=== PATIENT | female | born 1980 | race Caucasian/White ===

== ENCOUNTER 2017-01-05 21:17 | Emergency (ER) | payer SELFPAY ==
[~2017-01-05] VITALS: Ht 165.1 cm; Wt 57.0 kg
[2017-01-05 21:18] VITALS: BP 144/76; PULSE 74; RESP 16; TEMP 98.1; O2SAT 100
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
== END 2017-01-05 21:51 | disposition left against medical advice (07) ==
LOC: NEPK 21:17
DX: R10.9 Unspecified abdominal pain (principal)
CPT/HCPCS: 99281

== ENCOUNTER 2017-07-14 03:11 | Emergency (ER) | payer SELFPAY ==
[~2017-07-14] VITALS: Ht 162.6 cm; Wt 56.3 kg
[2017-07-14 03:18] VITALS: BP 133/71; PULSE 70; RESP 16; TEMP 97.9; O2SAT 99
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
[2017-07-14 05:37] VITALS: BP 107/67; PULSE 57; RESP 17; O2SAT 98
--- NOTE | 2017-07-14 05:38 | RADRPT ---
EXAM DATE/TIME: 07/14/2017 04:01 [facility] COMPARISON: No previous studies available for comparison. INDICATIONS : Left shoulder pain, patient fell. MEDICAL HISTORY : None. SURGICAL HISTORY : None. ENCOUNTER: Initial ACUITY: 1 day PAIN SCORE: 5/10 LOCATION: Left shoulder FINDINGS: Slight widening of the left a.c. joint. There is no evidence of fracture or dislocation. Adjacent rib s appear intact. CONCLUSION: Mild a.c. separation Suleman Elliott MD on July 14, 2017 at 5:35 Board Certified Radiologist. This report was verified electronically.
[2017-07-14] MEDS ORDERED: IBUP1TAB7 PO (05:41)
== END 2017-07-14 06:02 | disposition home or self-care (01) ==
LOC: NEPD 03:11
DX: S43.102A Unspecified dislocation of left acromioclavicular joint, initial encounter (principal); W18.39XA Other fall on same level, initial encounter; Y93.41 Activity, dancing; Y99.0 Civilian activity done for income or pay; Z72.0 Tobacco use
CPT/HCPCS: 73030; 99283

== ENCOUNTER 2017-07-20 01:37 | Emergency (ER) | payer SELFPAY ==
[~2017-07-20] VITALS: Ht 162.6 cm; Wt 55.0 kg
[~2017-07-20 01:37] MED LIST: IBUP1TAB7 PO
[2017-07-20 01:38] VITALS: BP 116/70; PULSE 69; RESP 18; TEMP 98.1; O2SAT 99
--- NOTE | 2017-07-20 01:52 | PD ---
HPI Chief Complaint: Cold / Flu Symptoms Time Seen by Provider: 01:44 Travel History International Travel<30 days: No Contact w/Intl Traveler<30days: No Traveled to known affect area: No History of Present Illness HPI 37-year-old white female presents emergency department with complaints of cough , congestion, shortness of breath, wheezing, sore throat and general malaise. She states that she has been sick now for over a week. She was seen in the emergency department last week for left shoulder injury. She states that she was told that she most likely has allergies. She has been taking over-the- counter medications without relief. She also states that she has had some lower back discomfort and some increased urinary frequency but no dysuria. No hematuria. She denies . Last period now. She started to spot. Patient denies any nausea vomiting. No abdominal pain or diarrhea. No vaginal complaints. History Past Medical Histgory Narrative Medical Left AC separation Past Surgical History Narrative Surgical Social History Alcohol Use: Yes (OCCASSIONALLY) Tobacco Use: Yes Allergies-Medications (Allergen,Severity, Reaction): Coded Allergies: No Known Allergies (Verified , 07/20/17) Reported Meds & Prescriptions Reported Meds & Active Scripts Active Ibuprofen 800 Mg Tab 800 Mg PO Q6HR PRN Review of Systems Except as stated in HPI: all other systems reviewed are Neg Physical Exam Narrative GENERAL: Well-developed, well-nourished in no acute distress. Nontoxic appearing. HEAD: Normocephalic, atraumatic. EYES: Pupils equal round and reactive. Extraocular motions intact. No scleral icterus. No injection or drainage. ENT: TMs clear without erythema. The external auditory canals clear. Nose: clear . Posterior pharynx is mildly erythematous and moist. No tonsillar edema or exudate. Uvula midline. Airway patent. NECK: Trachea midline.Supple, nontender, moves head freely. No central bony tenderness or spasm. CARDIOVASCULAR: Regular rate and rhythm without murmurs, gallops, or rubs. RESPIRATORY: Clear to auscultation. Breath sounds equal bilaterally. No wheezes , rales, or rhonchi. GASTROINTESTINAL: Abdomen soft, non-tender, nondistended. No hepato-splenomegaly , or palpable masses. No guarding. EXTREMITIES: No clubbing, cyanosis, or edema. No joint tenderness, effusion, or edema noted. BACK: Nontender without deformity or crepitance. No flank tenderness. Data Data Last Documented VS Vital Signs Date Time Temp Pulse Resp B/P (MAP) Pulse Ox O2 Delivery O2 Flow Rate FiO2 07/20/17 01:38 98.1 69 18 116/70 (85) 99 MDM Medical Screen Exam Complete: Yes Emergency Medical Condition: No Differential Diagnosis MDM: High Differential diagnoses: Pneumonia, bronchitis, URI, asthma, RAD, strep throat, allergic rhinitis Narrative Course A medical screening exam was performed: At the time of evaluation the presenting medical condition was determined not to be of an emergent nature. The patient was given the option of receiving additional care, but declined. Patient was given options for additional community resources from which to obtain care. The Patient Has Been advised to seek medical attention for their presenting complaint. The patient has been advised to return to the ER at any time if an emergent condition develops. Primary Impression: Encounter for medical screening examination Condition: Stable Portillo Simons Jul 20, 2017 01:52
== END 2017-07-20 02:25 | disposition left against medical advice (07) ==
LOC: NEPD 01:37
DX: R06.02 Shortness of breath (principal)
CPT/HCPCS: 99281

== ENCOUNTER 2017-07-31 03:56 | Emergency (ER) | payer OTHER ==
[2017-07-31 04:13] VITALS: BP 118/72; PULSE 76; RESP 16; TEMP 98; O2SAT 98
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
--- NOTE | 2017-07-31 04:58 | RADRPT ---
EXAM DATE/TIME: 07/31/2017 04:25 [facility] COMPARISON: No previous studies available for comparison. INDICATIONS : Trauma to hand. MEDICAL HISTORY : None. SURGICAL HISTORY : None. ENCOUNTER: Initial ACUITY: 1 day PAIN SCORE: 0/10 LOCATION: Right upper extremity hand FINDINGS: Three view examination of the right hand demonstrates no soft tissue swelling, dislocation, or fractu re. The carpal bones appear intact. The interphalangeal and metacarpophalangeal joints are intact. Bony mineralization is normal. CONCLUSION: Unremarkable examination of the right hand. Zac Page Jr., MD on July 31, 2017 at 4:56 Board Certified Radiologist. This report was verified electronically.
== END 2017-07-31 05:20 ==
LOC: NEPE 03:56
DX: S66.911A Strain of unspecified muscle, fascia and tendon at wrist and hand level, right hand, initial encounter (principal); W22.8XXA Striking against or struck by other objects, initial encounter; Z72.0 Tobacco use
CPT/HCPCS: 73130; 99283